=== PATIENT | female | born 1955 | race Caucasian/White ===

== ENCOUNTER → 2016-10-01 | Outpatient (CLI) | payer OTHER ==
[~2016-10-01] VITALS: Ht 162.6 cm; Wt 75.0 kg
[~2016-10-01] MED LIST: METHOTREXATE2.5 MG PO; NAPROSYN375 MG PO; NEXIUM40 MG PO; PLAQUENIL200 MG PO; SYNTHROID150 MCG PO
== END | disposition home or self-care (01) ==
LOC: AMB 09:00
DX: K21.0 Gastro-esophageal reflux disease with esophagitis (principal); K29.70 Gastritis, unspecified, without bleeding; M35.00 Sjogren syndrome, unspecified; E03.9 Hypothyroidism, unspecified; E66.9 Obesity, unspecified; Z68.29 Body mass index [BMI] 29.0-29.9, adult; M85.80 Other specified disorders of bone density and structure, unspecified site; M06.9 Rheumatoid arthritis, unspecified; Z79.899 Other long term (current) drug therapy; Z88.5 Allergy status to narcotic agent
CPT/HCPCS: 88305; 88342 TC